=== PATIENT | female | born 1980 | race Caucasian/White ===

== ENCOUNTER → 2023-04-10 14:49 | Outpatient (REF) | payer OTHER, SELFPAY ==
--- NOTE | 2023-04-10 14:56 | CA_ITS ---
Transthoracic Echocardiogram Patient (Last, First, Middle): Ruth Mosley, Gender: Female Date of : 1980 Age: 43 Procedure Date: 04/10/2023 Procedure Type: Transthoracic Echocardiogram Location: [facility] Height: 162.56 cm Weight: 63.5 kg BSA: 1.68 m2 Heart Rate: 67 bpm BP: 102 / 64 mmHg Water Meter Reader: SB Referring MD: Cecilio Almazan MD Fruit Harvester Machine Operator: Abraham Zhao MD Symptoms: CORONADO R08.09 Study Quality: Adequate ECG Rhythm: Sinus Conclusions: - Normal study Findings Left Ventricle Normal left ventricular size, thickness, and systolic function. The visually estimated ejection fraction is between 55-60%. Diastolic function is normal for age. Peak GLS is -20.3%, within normal limits. Right Ventricle Normal right ventricular cavity size and systolic function. Atria Both atria are normal in size. There is no evidence of interatrial shunt. Aortic Valve Normal aortic valve structure and function. There is no aortic valve stenosis. There is no aortic valve regurgitation. Mitral Valve Normal mitral valve structure and function. There is trace mitral valve regurgitation. There is no mitral valve stenosis. Pulmonic Valve The pulmonic valve is normal. There is trace pulmonic valve regurgitation. Tricuspid Valve Normal tricuspid valve structure. There is trace tricuspid valve regurgitation. The right ventricular systolic pressure is normal. The right ventricular systolic pressure is 19 mmHg. Normal right atrial pressure. There is no evidence of pulmonary hypertension. Great Vessels All visible segments of the aorta are normal in size. The pulmonary artery was not well visualized. Venous The inferior vena cava is normal in size and collapses greater than 50% with inspiration. Pericardium/Pleural There is no evidence of pericardial effusion. Prior Study Comparison No prior study available for comparison. Measurements 2D Linear Measurements IVSd: 0.56 0.6-0.9/0.6-1.0 cm LVIDd: 4.63 3.9-5.3/4.2-5.9 cm LVIDd Index: 2.76 2.4-3.2/2.2-3.1 cm/m2 LVIDs: 2.85 2.0-3.6 cm LVPWd: 0.65 0.7-1.1 cm LA Diam: 3.00 2.7-3.8/3.0-4.0 cm LAIDs Index: 1.79 1.5-2.3 cm/m2 LV Mass: 103.92 67-162/88-224 g LV Mass Index: 61.86 43-95/49-115 g/m2 LVOT Diam: 2.10 3.0+(-)1.3 cm 2D Systolic Function EF 4C: 54.10 >55% EF 2C: 58.50 >55% EF BiP: 57.40 >55% Mitral Valve MV Pk E: 0.94 MV PK A: 0.42 MV Decel Time: 192.00 E/A: 2.20 E'Lateral: 14.80 E'Medial: 11.00 E/E' Med: 8.60 E/E' Lat: 6.40 PHT: 56.00 MVA PHT: 3.93 Decel [place]: 4.91 Aortic Valve AoV Pk Elijah: 1.43 AoV Mn Elijah: 0.95 AoV VTI: 0.28 AoV Pk Grad: 8.00 Aov Mn Grad: 4.00 KAREN Cont.VTI: 2.54 LVOT LVOT Pk Elijah: 1.12 LVOT Mn Elijah: 0.70 LVOT VTI: 0.21 LVOT Pk Grad: 5.00 LVOT Mn Grad: 2.00 LVOT Diam: 2.10 LVOT Area: 3.46 Diastolic Function MV Pk E: 0.94 MV Pk A: 0.42 E/A: 2.20 E'Medial: 11.00 E/E' Med: 8.60 E' Laterial: 14.80 E/E' Lat: 6.40 Right Ventricle TAPSE (mm): 23.60 TVS' Elijah: 15.90 Tricuspid Valve TR Pk Elijah: 1.98 TR Pk Grad: 16.00 RA Press: 3.00 RVSP: 19.00 Great Vessels Aorta Sinus of Valsalva: 2.50 2.0-3.5 cm Ao Asc: 2.40 2.1-3.4 cm Pulmonary Veins Pulm Vein S/D 1.10 Pulmonary Valve PV Pk Elijah: 0.91 Peak PV Grad: 3.00 Updated in Other Vendor System with Status of Final Abraham Zhao MD electronically signed on 04/10/2023 4:23:51 PM with status of Final
== END ==
LOC: HO.CARD 14:49
PROVIDERS: PCP Family Medicine; Visit Provider Radiology Diagnostic Ultrasound
DX: R06.00 Dyspnea, unspecified (principal)
CPT/HCPCS: 93306; 93356

== ENCOUNTER 2025-06-29 06:14 | Outpatient (REF) | payer OTHER, SELFPAY ==
--- OUTSIDE RECORDS SUMMARY | 1999-10-18 05:30 | XMS_ITS | Continuity of Care Document ---
Author Organization [facility] Address [address] [facility] [address] [place] [address] Phone Care Team Providers Care Financial Aid Coordinator Name Role Phone Chambers OD, Saul Unavailable Unavailable Advance Directives Directive Yes / No Effective Date File Name No Information Encounters Encounter Description Practice Location Reason(s) For Visit Diagnoses Date Provider Providers Copied on Encounter [facility], [address], [place], [place], [id number], [place] tel:[phone] [facility] No Information [phone] Chambers OD Saul. [address] [facility] , [address], [place], [address], [place]. tel:[phone] Family History Family Member Type Diagnosis Age At Onset No Information Payers Payer name Insurance type Covered green party ID Authoriza tion(s) No Information Social History Type Description Quantity Date Captured Comments Sex Female Smoking Status No Information Chief Complaint And Reason For Visit No Information Reason For Referral Reason For Referral No Information History Of Present Illness Encounter Date Complaint History Of Prese nt Illness No Information Functional Status Date Functional Assessmen t No Information Instructions Date Instruction Additional Infor mation No Information Assessments Type Assessment Date No Information Patient Care Teams Name Effective Dates (start - stop) Status Members No Information
--- NOTE | ~2025-06-29 | US_ITS ---
CLINICAL HISTORY: RENAL INSUFFICIANCY Retroperitoneal ultrasound Comparison: None available Findings: The kidneys are normal in echotexture bilaterally. No hydronephrosis. The right kidney is normal in size, measuring 10.1cm in length. The left kidney is normal in size, measuring 10.5cm in length. The urinary bladder is unremarkable. Prevoid volume 120.0 mL. Postvoid volume 4.7 mL. Ureteral jets are visualized bilaterally. Impression: No acute findings. This document has been electronically signed by: Jen Caraballo MD on 06/30/2025 16:06:22
--- OUTSIDE RECORDS SUMMARY | 2025-06-29 06:16 | XMS_ITS | Encounter Summary ---
Author Organization [facility] Address [address] [place] [address] [place] [address] Phone Care Team Providers Care Bill Adjuster Name Role Phone Merlene Treadwell MD Primary Care Provider + Encounter Details Date Type Department Care Team (Late st Contact Info) Description 04/01/2024 Transcribe Orders Virtual Department [address] [place] [address] Merlene Treadwell MD [address] [place] [phone] [email or web address] Breast screening (Primary Dx) Social History Tobacco Use Types Packs/Day Years Used Date Smoking Tobacco: Never Smokeless Tobacco: Never Alcohol Use Standard Drinks/Week Comments Yes 0 (1 standard drink = 0.6 oz pure alcohol) usually only 1-2 drinks / month Education Answer Date Recorded Are you interested in more education? Not on domonique e 02/08/2023 Are you concerned about learning? Not on file 02/08/2023 No 02/08/2023 No 02/08/2023 Digital Access Answer Date Recorded No 03/12/2023 No 03/12/2023 Reliable internet access at home? Not on file 03/12/2023 Device with a working camera? Not on file Comments No Sex and Gender Information Value Date Recorded Sex Assigned at Female 06/29/2019 5:48 PM EDT Legal Sex Female 5:23 PM EDT Gender Identity Female 06/29/2019 5:48 PM EDT Sexual Orientation Straight 06/29/2019 5: 48 PM EDT documented as of this encounter Plan of Treatment Not on file documented as of this encounter Results * BI MAMMOGRAM SCREENING WITH TOMOSYNTHESIS WITH CAD (BILATERAL) (07/01/2024 10:14 AM EDT) Anatomical Region Laterality Modality Breast Left, Breast Right, Breast Bilateral Bila teral Mammography 07/01/2024 10:5 0 AM EDT Impressions 07/01/2024 10:51 AM EDT No mammographic evidence of malignancy in either breast. Annual screening mammography is recommended. BI-RADS 1 NEGATIVE The patient will be notified of the results and recommendations. Narrative 07/01/2024 10:51 AM EDT BI MAMMOGRAM SCREENING WITH TOMOSYNTHESIS WITH CAD (BILATERAL) Additional patient information: Screening. COMPARISON: Comparison is made with relevant prior imaging. Breast composition: The breast tissue is heterogeneously dense which may obscure small masses. FINDINGS: No abnormal masses, suspicious calcifications, or other significant findings are identified mammographically in either breast. There has been no interval change. us Merlene Teradwell MD IMG MG EXAMS Final Re sult documented in this encounter Visit Diagnoses Diagnosis Breast screening- Primary Breast screening, unspecified Breast screening Breast screening, unspecified documented in this encounter Care Teams Bill Adjuster Relationship Specialty Start Date End Date Merlene Tredawell MD [address] [place] [address] PCP - General Family Medicine 11/11/20 documented as of this encounter Additional Source Comments The information contained in this document represents components of the legal health record. It is not the complete legal health record.[facility]
--- OUTSIDE RECORDS SUMMARY | 2025-06-29 06:16 | XMS_ITS | Encounter Summary ---
Author Organization [facility] Address [address] [place] [address] Phone Care Team Providers Care Loan Representative Name Role Phone Merlene Treadwell MD Primary Care Provider + Encounter Details Date Type Department Care Team (Late st Contact Info) Description 11/30/2020 Procedure Pass [address] [place] [address] Social History Tobacco Use Types Packs/Day Years Used Date Smoking Tobacco: Never Smokeless Tobacco: Never Alcohol Use Standard Drinks/Week Comments Yes 0 (1 standard drink = 0.6 oz pur e alcohol) rarely Comments Unknown Sex and Gender Information Value Date Recorded Sex Assigned at Female 06/29/2019 5:48 PM EDT Legal Sex Female 5:23 PM EDT Gender Identity Female 06/29/2019 5:48 PM EDT Sexual Orientation Straight 06/29/2019 5: 48 PM EDT documented as of this encounter Plan of Treatment Not on file documented as of this encounter Visit Diagnoses Not on filedocumented in this encounter Care Teams Loan Representative Relationship Specialty Start Date End Date Merlene Treadwell MD [address] [place] [address] [place] [address] PCP - General Family Medicine 11/11/20 documented as of this encounter Additional Source Comments The information contained in this document represents components of the legal health record. It is not the complete legal health record.[facility]
--- OUTSIDE RECORDS SUMMARY | 2025-06-29 06:16 | XMS_ITS | Encounter Summary ---
Author Organization [facility] Address [address] [place] [phone] Phone Care Team Providers Care Professor Of Kinesiology Name Role Phone Merlene Treadwell MD Primary Care Provider + Encounter Details Date Type Department Care Team (Late st Contact Info) Description 04/26/2021 Procedure Pass [facility] - [address] [place] [address] Social History Tobacco Use Types Packs/Day Years Used Date Smoking Tobacco: Never Smokeless Tobacco: Never Alcohol Use Standard Drinks/Week Comments Yes 0 (1 standard drink = 0.6 oz pur e alcohol) rarely Comments No Sex and Gender Information Value [...] on filedocumented in this encounter Care Teams Professor Of Kinesiology Relationship Specialty Start Date End Date Merlene Treadwell MD [address] [place] [address] [place] [address] PCP - General Family Medicine 11/11/20 documented as of this encounter Additional Source Comments The information contained in this document represents components of the legal health record. It is not the complete legal health record.[facility]
--- OUTSIDE RECORDS SUMMARY | 2025-06-29 06:16 | XMS_ITS | Clinical Summary ---
Author Organization [facility] Address [address] [place] [address] Phone Care Team Providers Care Supervisor Drapery Hanging Name Role Phone Merlene Treadwell MD Primary Care Provider + Allergies Active Allergy Reactions Criticality Noted Date Comments Bupropion Hcl 11/11/2020 wheezing Corticosteroids (Glucocorticoids) 02/25/2023 RASH- CREAM ASTHMA -INHALER Medications levothyroxine (SYNTHROID, LEVOTHROID) 75 MCG tablet Take 75 mcg by mouth every morning. Active loratadine (CLARITIN) 10 mg tablet Take 10 mg by mouth daily. Active montelukast (SINGULAIR) 10 mg tablet Take 10 mg by mouth nightly at bedtime. 12/25/2022 Active JANNETH 3-0.03 mg per tablet Take 1 tablet by mouth daily. 12/19/2022 Active Active Problems Problem Noted Date Diagnosed Date Complete tear of right ACL, initial encounter Family History Medical History Relation Comments Breast cancer Maternal Grandmother Cancer Paternal Grandfather pancreatic Relation Status Comments Maternal Grandmother Paternal Grandfather Social History Tobacco Use Types Packs/Day Years Used Date Smoking Tobacco: Never Smokeless Tobacco: Never Tobacco Cessation:Counseling Given: Not Answered Alcohol Use Standard Drinks/Week Comments Yes 0 [...] Orientation Straight 06/29/2019 5: 48 PM EDT Last Filed Vital Signs Vital Sign Reading Time Taken Comments Blood Pressure 110/64 05/30/2023 9:29 AM EDT Pulse 81 05/30/2023 9:29 AM EDT Temperature 36.5 C (97.7 F) 06/29/2019 8:22 PM EDT Respiratory Rate 17 06/29/2019 8:22 PM EDT Oxygen Saturation 99% 05/30/2023 9:29 AM EDT Inhaled Oxygen Concentration - - Weight 64 kg (141 lb) 05/30/2023 9:29 AM EDT Height 162.6 cm (5' 4.02 ) 05/30/2023 9:29 AM ED T Body Mass Index 24.19 05/30/2023 9:29 AM EDT Plan of Treatment Health Maintenance Due Date Last Done Comments LIPID PANEL 1979 DEPRESSION SCREENING 1991 HEPATITIS C SCREENING 1997 HIV ONE-TIME SCREENING (18-65 YEARS) 1997 PAP SMEAR 2000 TSH LEVEL 02/26/2024 02/25/2023 COLOGUARD 2024 COLONOSCOPY 2024 COLORECTAL CANCER SCREENING 2024 FIT TEST 2024 FOBT 2024 SIGMOIDOSCOPY 2024 VIRTUAL COLONOSCOPY 2024 INFLUENZA VACCINE (#1) 2025 , 06/20/2020, 08/26/2019 COVID-19 VACCINE (2 season) 2025 01/23/2021 MAMMOGRAM 07/01/2026 07/01/2024, 09/0 04/2023, 05/04/2022, Additional history exists Adult Td,Tdap Booster 04/07/2028 04/07/2018 SMOKING STATUS SCREENING (Once After 26 Yrs) Completed 07/01/2024 HEPATITIS A VACCINES Aged Out No long er eligible based on patient's age to complete this topic HIB VACCINES Aged Out No longer eligi ble based on patient's age to complete this topic MENINGOCOCCAL VACCINES (ACWY) Aged Out No longer eligible based on patient's age to complete this topic MENINGOCOCCAL VACCINES (B) Aged Out N o longer eligible based on patient's age to complete this topic PNEUMOCOCCAL VACCINES (0-49 years) Aged Out No longer eligible based on patient's age to complete this topic Medical Devices Not on file Procedures Procedure Name Priority Date/Time Associated Diagnosis Comments BI MAMMOGRAM SCREENING WITH TOMOSYNTHESIS WITH CAD (BILATERAL) Routine 07/01/2024 10:14 AM EDT Breast screening TSH WITH REFLEX Routine 02/25/2023 10:28 AM EDT Palpitations from Last 3 Months or Most Recently Relevant to Health Maintenance Results * BI MAMMOGRAM SCREENING WITH TOMOSYNTHESIS [...] has been no interval change. us Merlene Treadwell MD IMG MG EXAMS Final Re sult * TSH with reflex (02/25/2023 10:28 AM EDT) TSH 1.47 0.27 - 4.20 uIU/mL [facility] Blood 02/25/2023 10:2 8 AM EDT 02/25/2023 10:29 AM EDT us Cecilio Almazan MD LAB BLOOD ORDERABLES Final Re sult [facility] [address] [place] [address] from Last 3 Months or Most Recently Relevant to Health Maintenance Insurance [address] [place] [address] [employer] [address] [place] [address] [employer] [facility] [employer] [facility] CHOICE [facility] CHOICE [facility] CHO[facility] Care Teams Supervisor Drapery Hanging Relationship Specialty Start Date End Date Merlene Treadwell MD [address] [place] [address] PCP - General Family Medicine 11/11/20 Additional Source Comments The information contained in this document represents components of the legal health record. It is not the complete legal health record.[facility]
--- OUTSIDE RECORDS SUMMARY | 2025-06-29 06:16 | XMS_ITS | Encounter Summary ---
Author Organization [facility] Address [address] [place] [address] [place] [address] Phone Care Team Providers Care Mold Carpenter Name Role Phone Merlene Treadwell MD Primary Care Provider + Encounter Details Date Type Department Care Team (Late st Contact Info) Description 06/12/2023 Procedure Pass [facility] - [address] [place] [address] Social History Tobacco Use Types Packs/Day Years [...] on filedocumented in this encounter Care Teams Mold Carpenter Relationship Specialty Start Date End Date Merlene Treadwell MD [address] [place] [address] PCP - General Family Medicine 11/11/20 documented as of this encounter Additional Source Comments The information contained in this document represents components of the legal health record. It is not the complete legal health record.[facility]
--- OUTSIDE RECORDS SUMMARY | 2025-06-29 06:16 | XMS_ITS | Encounter Summary ---
Author Organization [facility] Address [address] [place] [address] [place] [address] Phone Care Team Providers Care Orthodontic Technician Name Role Phone Merlene Treadwell MD Primary Care Provider + Encounter Details Date Type Department Care Team (Late st Contact Info) Description 04/01/2024 Procedure Pass [facility] - [address] [place] [address] Social History Tobacco Use Types Packs/Day Years Used Date Smoking Tobacco: Never Smokeless Tobacco: Never Alcohol Use Standard Drinks/Week Comments Yes 0 (1 standard drink = 0.6 oz pure alcohol) usually only 1-2 drinks / month Education Answer Date Recorded Are you interested in more education? Not on domoniqeu e 02/08/2023 Are you concerned about learning? [...] on filedocumented in this encounter Care Teams Orthodontic Technician Relationship Specialty Start Date End Date Merlene Treadwell MD [address] [place] [address] PCP - General Family Medicine 11/11/20 documented as of this encounter Additional Source Comments The information contained in this document represents components of the legal health record. It is not the complete legal health record.[facility]
--- OUTSIDE RECORDS SUMMARY | 2025-06-29 06:16 | XMS_ITS | Encounter Summary ---
Author Organization [facility] Address [address] [place] [phone] Phone Care Team Providers Care Food Preparation Supervisor Name Role Phone Merlene Treadwell MD Primary Care Provider + Encounter Details Date Type Department Care Team (Late st Contact Info) Description 03/15/2022 Transcribe Orders Virtual Department [address] [place] [address] Merlene Treadwell MD [address] [place] [phone] [email or web address] Breast screening (Primary Dx) Social History [...] MAMMOGRAM SCREENING WITH TOMOSYNTHESIS WITH CAD (BILATERAL) (05/04/2022 9:52 AM EDT) Anatomical Region Laterality Modality Breast Left, Breast Right, Breast Bilateral Bila teral Mammography 05/04/2022 10:1 5 AM EDT Impressions 05/04/2022 10:17 AM EDT No mammographic evidence of malignancy. Recommend routine annual surveillance. BI-RADS CATEGORY: 1 - Negative. DENSITY: The breast tissue is heterogeneously dense, which could obscure a lesion on mammography. Narrative 05/04/2022 10:17 AM EDT 42-year-old female. Comparison made to previous on 05/03/2021. Interpretation made in conjunction with computer-aided detection and tomosynthesis. The breasts are heterogeneously dense, which may obscure small masses. There are no suspicious masses, areas of architectural distortion, or suspicious clusters of microcalcifications. Procedure Note Jeovany Starkey MD - 05/04/2022 42-year-old female. Comparison made to previous on 05/03/2021.Interpretation made in conjunction with computer-aided detection andtomosynthesis. The breasts are heterogeneously dense, which may obscure small masses. There are no suspicious masses, areas of architectural distortion, orsuspicious clusters of microcalcifications. IMPRESSION: No mammographic evidence of malignancy. Recommend routine annualsurveillance. BI-RADS CATEGORY: 1 - Negative. DENSITY: The breast tissue is heterogeneously dense, which could obscurea lesion on mammography. Merlene Treadwell MD IMG MG EXAMS Final Re sult documented in this encounter Visit Diagnoses Diagnosis Breast screening- Primary Breast screening, unspecified Breast screening Breast screening, unspecified documented in this encounter Care Teams Food Preparation Supervisor Relationship Specialty Start Date End Date Merlene Treadwell MD [address] [place] [address] PCP - General Family Medicine 11/11/20 documented as of this encounter Additional Source Comments The information contained in this document represents components of the legal health record. It is not the complete legal health record.[facility]
--- OUTSIDE RECORDS SUMMARY | 2025-06-29 06:16 | XMS_ITS | Encounter Summary ---
Author Organization [facility] Address [address] [place] [address] Phone Care Team Providers Care Clicking Machine Operator Name Role Phone Merlene Treadwell MD Primary Care Provider + Encounter Details Date Type Department Care Team (Late st Contact Info) Description 03/15/2022 Procedure Pass [facility] - [address] [place] [address] Social History Tobacco Use Types Packs/Day Years Used Date Smoking Tobacco: Never Smokeless Tobacco: Never Alcohol Use Standard Drinks/Week Comments Yes 0 (1 standard drink = 0.6 oz pure alcohol) usually only 1-2 drinks / month Comments No Sex and Gender Information Value [...] on filedocumented in this encounter Care Teams Clicking Machine Operator Relationship Specialty Start Date End Date Merlene Treadwell MD [address] [place] [address] [place] [address] PCP - General Family Medicine 11/11/20 documented as of this encounter Additional Source Comments The information contained in this document represents components of the legal health record. It is not the complete legal health record.[facility]
--- OUTSIDE RECORDS SUMMARY | 2025-06-29 06:16 | XMS_ITS | Encounter Summary ---
Author Organization [facility] Address [address] [place] [address] [place] [phone] Phone Care Team Providers Care Weekend Anchor Name Role Phone Merlene Treadwell MD Primary Care Provider + Encounter Details Date Type Department Care Team (Late st Contact Info) Description 04/26/2021 Ancillary Orders Virtual Department [address] [place] [address] Merlene Treadwell MD [address] [place] [phone] [email or web address] Breast screening Social History Tobacco Use Types Packs/Day Years [...] MAMMOGRAM SCREENING WITH TOMOSYNTHESIS WITH CAD (BILATERAL) (05/03/2021 5:25 PM EDT) Anatomical Region Laterality Modality Breast Left, Breast Right, Breast Bilateral Bila teral Mammography 05/03/2021 4:5 7 PM EDT Impressions 05/03/2021 5:16 PM EDT No mammographic findings of malignancy on baseline exam. Annual screening is recommended. BI-RADS CATEGORY: 1 - Negative. DENSITY: The breast tissue is heterogeneously dense, which could obscure a lesion on mammography. Narrative 05/03/2021 5:16 PM EDT Bilateral full-field digital screening mammography is obtained and read in conjunction with computer-aided detection. Tomosynthesis as well as 2-D C view imaging of both breasts in two planes also obtained. This is a baseline exam. No worrisome asymmetries or masses. No suspicious calcifications. No areas of architectural distortion. No skin or nipple finding of concern is appreciated. Procedure Note Harsha Holguin MD - 05/03/2021 Bilateral full-field digital screening mammography is obtained and read inconjunction with computer-aided detection. Tomosynthesis as well as 2-D Cview imaging of both breasts in two planes also obtained. This is abaseline exam. No worrisome asymmetries or masses. No suspicious calcifications. Noareas of architectural distortion. No skin or nipple finding of concernis appreciated. IMPRESSION: No mammographic findings of malignancy on baseline exam. Annualscreening is recommended. BI-RADS CATEGORY: 1 - Negative. DENSITY: The breast tissue is heterogeneously dense, which could obscurea lesion on mammography. Merlene Treadwell MD [facility] MG EXAMS Final Re sult documented in this encounter Visit Diagnoses Diagnosis Breast screening Breast screening, unspecified Breast screening Breast screening, unspecified documented in this encounter Care Teams Weekend Anchor Relationship Specialty Start Date End Date Merlene Treadwell MD [address] [place] [phone] PCP - General Family Medicine 11/11/20 documented as of this encounter Additional Source Comments The information contained in this document represents components of the legal health record. It is not the complete legal health record.[facility]
--- OUTSIDE RECORDS SUMMARY | 2025-06-29 06:16 | XMS_ITS | Encounter Summary ---
Author Organization [facility] Address [address] [place] [address] [place] [phone] Phone Care Team Providers Care Garment Worker Name Role Phone Merlene Treadwell MD Primary Care Provider + Encounter Details Date Type Department Care Team (Late st Contact Info) Description 06/12/2023 Transcribe Orders Virtual Department [address] [place] [address] Merlene Treadwell MD [address] [place] [phone] [email or web address] Breast screening (Primary Dx) [...] MAMMOGRAM SCREENING WITH TOMOSYNTHESIS WITH CAD (BILATERAL) (06/20/2023 4:10 PM EDT) Anatomical Region Laterality Modality Breast Left, Breast Right, Breast Bilateral Bila teral Mammography 07/04/2023 6:05 PM EDT Impressions 07/05/2023 1:05 PM EDT No mammographic signs of malignancy. Annual screening is recommended. BI-RADS CATEGORY: 1 - Negative. DENSITY: The breast tissue is heterogeneously dense, which could obscure a lesion on mammography. Narrative 07/05/2023 1:05 PM EDT Bilateral mammography is performed in conjunction with computed aided detection. 3-D tomography along with 2-D C view imaging was also performed. Comparison made to previous dated as far back as 05/03/2021 and as recent as 05/04/2022. No suspicious masses, areas of architectural distortion or suspicious microcalcifications. Procedure Note Markel Agrawal MD - 07/05/2023 Bilateral mammography is performed in conjunction with computed aideddetection. 3-D tomography along with 2-D C view imaging was alsoperformed. Comparison made to previous dated as far back as 05/03/2021 andas recent as 05/04/2022. No suspicious masses, areas of architectural distortion or suspiciousmicrocalcifications. IMPRESSION: No mammographic signs of malignancy. Annual screening is recommended. BI-RADS CATEGORY: 1 - Negative. DENSITY: The breast tissue is heterogeneously dense, which could obscurea lesion on mammography. us Merlene Treadwell MD [facility] MG EXAMS Final Re sult documented in this encounter Visit Diagnoses Diagnosis Breast screening- Primary Breast screening, unspecified Breast screening Breast screening, unspecified documented in this encounter Care Teams Garment Worker Relationship Specialty Start Date End Date Merlene Treadwell, MD [address] [place] [phone] [email or web address] PCP - General Family Medicine 11/11/20 documented as of this encounter Additional Source Comments The information contained in this document represents components of the legal health record. It is not the complete legal health record.[facility]
== END 2025-06-29 06:15 | disposition home or self-care (01) ==
LOC: HO.UMASIMG 06:14
PROVIDERS: Visit Provider Family Medicine
DX: N28.9 Disorder of kidney and ureter, unspecified (principal)
CPT/HCPCS: 76770

== ENCOUNTER → 2025-06-29 14:35 | Outpatient (BNV) | payer OTHER, SELFPAY | PROVIDERS: Visit Provider Radiology Diagnostic Radiology | DX: N28.9 Disorder of kidney and ureter, unspecified (principal) | CPT/HCPCS: 76770 ==